=== PATIENT | male | born 1995 | race Caucasian/White ===

== ENCOUNTER 2021-03-28 21:09 | Emergency (ER) | payer SELFPAY ==
[~2021-03-28] VITALS: Ht 200.7 cm; Wt 90.9 kg
[2021-03-28] MEDS ORDERED: MAGNESIUM HYDROXIDE 2,400 MG/30 ML ORAL.SUSP. PO ONE (21:30)
--- NOTE | 2021-03-28 21:30 | PHYS DOC ---
Past History Past Medical History: Anxiety, Bipolar, Depression Past Medical History ADHD, Polysubstance abuse Smoking: Cigarettes Alcohol Use: Occasionally Drug Use: Marijuana, Opiates General Adult EDM: Chief Complaint: OVERDOSE HPI: HPI: Patient is a 25 year old male who presents with accidental over dose of unknown drug. Pt. was treating a migraine and took two tablets.. of what he thought was Ibuprofen, but became unconscious. Paramedics arrived and gave him Narcan and he regain consciousness. Patient does have past medical history of anxiety, ADHD, Bipolarand migraines. Patient normally follows with doctors at [facility] Dr. Meza. Patient denies history of illicit drug use at first.. No recent travel. No specific ill contacts. Pt. not for sure the two tablets he took. Pt. eventually admitted the two tablets were a narcotic. Did not know however what kind. Pt.later admits that the drug was to be "Oxy" and vanessa he was using it recreational, but also grief over the recent loss of son and of Grandmother. Pt. denies any legal issues. Pt. denies any problems with his significant others and family. Pt. currently working in the [employer]. Patient first did not want to discuss any of his medical issues with his family, but by the time of discharge he agreed that we could discuss these issues with family members. Pt. at first denied self harm, but did eventually admit to depression and some times self harm thoughts. Pt. had discussions with PAT team adolfo Chowdhury. See her report. Ortley he was low risk for discharge home with [facility]. Review of Systems: Review of Systems: Constitutional: Denies fever or chills Eyes: Denies change in visual acuity HENT: Denies nasal congestion or sore throat Respiratory: Denies cough or shortness of breath Cardiovascular: Denies chest pain or edema GI: Denies abdominal pain, nausea, vomiting, bloody stools or diarrhea : Denies dysuria Musculoskeletal: Denies back pain or joint pain Integument: Denies rash Neurologic: Denies headache, focal weakness or sensory changes Endocrine: Denies polyuria or polydipsia Lymphatic: Denies swollen glands Psychiatric: Complaints of anxiety Family History: Family History: Noncontributory to presentation Current Medications: Current Meds: See nursing for home meds Allergies: Allergies: No known drug allergies Physical Exam: PE: Constitutional: Well developed, well nourished, no acute distress appears overly sedated.. Red hair HENT: Normocephalic, atraumatic, bilateral external ears normal, oropharynx moist, no oral exudates, nose normal. [] Eyes: PERRLA, EOMI, conjunctiva normal, no discharge. [] Neck: Normal range of motion, no tenderness, supple, no stridor. [] Cardiovascular: Tachycardia heart rate regular rhythm, no murmur [] Lungs & Thorax: Bilateral breath sounds equal apex on auscultation [] Abdomen: Bowel sounds decreased, soft, no tenderness, no masses, no pulsatile masses. [] Skin: Warm, dry, no erythema, no rash. [] Back: No tenderness, no CVA tenderness. [] Extremities: No tenderness, no cyanosis, no clubbing, ROM intact, no edema. [] Neurologic: Alert and oriented X 3, moves all extremities on request, has distal sensory,, no focal deficits noted. [] DTRs +2 patella and brachial. Fruit Coordinator equal. Psychologic: Affect anxious, judgement normal, mood normal. [] EKG: EKG: My interpretation EKG shows a sinus rate of 91. No findings acute STEMI or morphology. Radiology/Procedures: Radiology/Procedures: [] Heart Score: C/O Chest Pain: N/A HEART Score for Chest Pain: HEART Score for Chest Pain Response (Comments) Value History Slighlty/Non-Suspicious 0 ECG Normal 0 Age < 45 0 Risk Factors No Risk Factors 0 Troponin < Normal Limit 0 Total 0 Risk Factors: Risk Factors: DM, Current or recent (<one month) smoker, HTN, HLP, family history of CAD, obesity. Risk Scores: Score 0 - 3: 2.5% MACE over next 6 weeks - Discharge Home Score 4 - 6: 20.3% MACE over next 6 weeks - Admit for Clinical Observation Score 7 - 10: 72.7% MACE over next 6 weeks - Early Invasive Strategies Course & Med Decision Making: Course & Med Decision Making Pertinent Labs and Imaging studies reviewed. (See chart for details) See PAT evaluation. Keep follow up at [facility]. Return if any concerns. Please consider the risks of polysubstance abuse. Impression: 1. Accidental overdose- "Oxy" 2. History of migraines 3. History of ADHD 4. History of anxiety 5. Hx. of Depression- Bipolar 6. Suicidal Ideation 7. Glucose Elevated 154 8. Grief 9. Polysubstance Abuse 10. Tobacco and Marijuana Use [] Dragon Disclaimer: Dragon Disclaimer: This electronic medical record was generated, in whole or in part, using a voice recognition dictation system. Dragon Disclaimer This chart was dictated in whole or in part using Voice Recognition software in a busy, high-work load, and often noisy Emergency Department environment. It may contain unintended and wholly unrecognized errors or omissions. VELASQUEZ HUNTER MD Mar 28, 2021 21:30
[2021-03-28 22:22] LABS: BASO % 1 % (0-3); EOS % 1 % (0-3); HEMATOCRIT 39.3 % (39.0-53.0); HEMOGLOBIN 13.1 g/dL (13.0-17.5); LYMPH # 1.9 x10^3/uL (1.0-4.8); LYMPH % 26 % (24-48); MEAN CORPUSCULAR HEMOGLOBIN 29 pg (25-35); MEAN CORPUSCULAR HGB CONC 33 g/dL (31-37); MEAN CORPUSCULAR VOLUME 87 fL (79-100); MONO # 0.5 x10^3/uL (0.0-1.1); MONO % 7 % (0-9); NEUT # 4.9 x10^3uL (1.8-7.7); NEUT % 66 % (31-73); PLATELET COUNT 274 x10^3/uL (140-400); RED BLOOD COUNT 4.52 x10^6/uL (4.30-5.70); RED CELL DISTRIBUTION WIDTH 14.5 % (11.5-14.5); WHITE BLOOD COUNT 7.4 x10^3/uL (4.0-11.0)
[2021-03-28] MEDS: IV RINGERS SOLUTION,LACTATED 1,000 ML IV SCH (22:22)
[2021-03-28 22:40] LABS: PLT ESTIMATE ADEQUATE (ADEQUATE)
[2021-03-28 22:49] LABS: CALCIUM 8.8 mg/dL (8.5-10.1); CREATININE 0.8 mg/dL (0.7-1.3); GFR 116.9; POTASSIUM 3.7 mmol/L (3.5-5.1)
[2021-03-28 23:04] LABS: ACETAMIN < 2.0 mcg/mL (10-30); ETHANOL 11 mg/dL (0-10); SALIC < 2.8 mg/dL (2.8-20.0)
--- NOTE | 2021-03-28 23:25 | EKG ---
[address] [address] Test Date: 2021-03-28 Test Time: 23:11:40 Pat Name: JASMYN PRIETO Department: Room: Gender: M Blueprint Maker: TWIN : [id number] Requested By: VELASQUEZ HUNTER Order Number: [id number] Reading MD: Measurements Intervals Slaughter Rate: 91 P: 50 PA: 168 QRS: 48 QRSD: 102 T: 22 QT: 354 QTc: 437 Interpretive Statements SINUS RHYTHM NORMAL ECG RI6.02 No previous ECG available for comparison
[2021-03-28 23:54] LABS: BARBITURATES NEG (NEG); BENZODIAZEPINES NEG (NEG); CANNABINOIDS POS (NEG); COCAINE NEG (NEG); METHADONE NEG (NEG); OPIATES NEG (NEG); PHENCYCLIDINE NEG (NEG)
[2021-03-29 00:08] LABS: BILIRUBIN,URINE NEG (NEG); CLARITY,URINE CLEAR; COLOR,URINE YELLOW; GLUCOSE,URINE NEG (NEG); NITRITE,URINE NEG (NEG); UROBILINOGEN,URINE 0.2 mg/dL (0.2 mg/dL)
[2021-03-29 00:09] LABS: BACTERIA,URINE 0 /HPF (0-FEW); RBC,URINE 0 /HPF (0-2); SQUAMOUS EPITHELIAL CELL,UR OCC /LPF; WBC,URINE 0 /HPF (0-4)
[2021-03-29 00:10] LABS: AMPHETAMINE/METHAMPHETAMINE NEG (NEG)
[2021-03-29 00:42] VITALS: BP 133/83
[2021-03-29] MEDS: ACETAMINOPHEN 500 MG TABLET PO ONE (02:11)
== END 2021-03-29 02:28 | disposition home or self-care (01) ==
LOC: ER 21:09
DX: T39.311A Poisoning by propionic acid derivatives, accidental (unintentional), initial encounter (principal); G43.909 Migraine, unspecified, not intractable, without status migrainosus; R45.851 Suicidal ideations; F41.9 Anxiety disorder, unspecified; F32.9 Major depressive disorder, single episode, unspecified; F17.210 Nicotine dependence, cigarettes, uncomplicated; F12.10 Cannabis abuse, uncomplicated; F43.21 Adjustment disorder with depressed mood
CPT/HCPCS: 36415; 80048; 80307; 80329; 81001; 82550; 83735; 84484; 85025; 93005; 96360; 99285; G0480; J7120